=== PATIENT | female | born 1990 | race Caucasian/White ===

== ENCOUNTER 2017-12-11 07:15 | Emergency (ER) | payer OTHER, SELFPAY ==
[2017-12-11 07:16] VITALS: BP 115/92; PULSE 136; RESP 14; TEMP 36.3; O2SAT 95; BMI 31.5
[2017-12-11 07:29] VITALS: BP 122/79; PULSE 133; RESP 16; O2SAT 98
--- NOTE | 2017-12-11 07:49 | ED.VISSUMM ---
- ER Visit Summary Date of Service: 12/11/17 Chief Complaint: [Back pain] History of Present Illness: The patient is a 27 F [who presents the emergency department with back pain. 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 Since then she has pain with movement and radiation down her right leg. No numbness or tingling. No urinary symptoms. No bowel dysfunction. No saddle anesthesia. No fevers or chills. She is not on any blood thinners. She has had no invasive procedures. No fevers or chills. She does have anxiety. She was very anxious coming and she was also out of breath walking up a hill with a 6-month-old which I think accounts for her elevated heart rate. She has had fibromyalgia and takes gabapentin she has been taking Tylenol. She is followed by Dr. Blackburn] Physical Examination: [] Heart rate 133 other vitals within normal limits WN WD NAD PERRL EOMI MMM NECK supple and nontender, no masses RRR no murmur rub or gallop, no peripheral edema, symmetric radial pulses CTAB no respiratory distress ABDOMEN is soft and nontender, normal bowel sounds, no distension, no rebound or guarding She has mild tenderness in the midline at L1-L2 as well as L4-L5 there is no step-offs external examination is normal she has decreased range of motion secondary to pain 5 EHL dorsiflexion plantar flexion knee extension hip flexion there is no skin changes distally she has 2+ DP pulses and 2+ patellar reflexes SKIN is warm and dry no rashes Alert and Oriented x3, CN II-XII in tact, no motor or sensory deficits, gait normal No lymphadenopathy Test Results: [] Emergency Department Course and Treatment: [Patient was given Toradol IM. X-rays were obtained. Extremities show straightening of normal lordosis there is no other acute abnormality. Patient may have a small herniated disc. She will be treated with Medrol Dosepak [place] and keep her Flexeril as scheduled. Patient was given precautions for which to return. There is no signs of cauda equina or spinal cord compression. She will follow-up with her primary care physician and 5 days.] Treatment Plan: [] Disposition: [Discharge] Impression: [Lumbar back pain with radiculopathy] This note was generated with [employer] dictation software. It may contain incorrect words, spelling, and punctuation that were not noted in review of the chart prior to signing ED Disposition - Plan for ED Patient: Chief Complaint: Back Referrals: Selvin Nice DO [Primary Care Provider] -
--- NOTE | 2017-12-11 07:57 | RAD_ITS ---
STUDY: X-RAY - LUMBAR SPINE REASON FOR EXAM: Female, 27 years old. Low back pain. TECHNIQUE: 3 view(s) of the lumbar spine were obtained. COMPARISON: None FINDINGS: There is straightening of the normal lumbar lordosis. There is no substantial scoliosis. There is a normal alignment of the vertebrae. Normal vertebral bodies and endplates. Normal disc space heights. Partial lumbarization of the S1 vertebrae. The soft tissue structures are unremarkable. RAD/Lumbar Spine 2 or 3 Views IMPRESSION: Straightening of the normal lumbar lordosis. Electronically Signed: Conner Chi MD at 8:14 EDT Tel [phone], Service support ,
[2017-12-11] MEDS: Ketorolac 60 MG/2 ML Vial IM (07:58)
--- NOTE | 2017-12-11 08:29 | ED.DEP ---
ED Disposition - Plan for ED Patient: Chief Complaint: Back Instructions: ED Sciatica, ED Low Back Pain Injury Prescriptions: Hydrocodone Bitart/Apap 5-325 [[place] 5MG-325MG] 1 tablet PO Q6H PRN PRN 2 Days #7 tablet PRN Reason: Pain MethylPREDNISolone DosePak [Medrol DosePak] 4 mg PO UD #1 box Referrals: Selvin Nice DO [Primary Care Provider] - 5-7 Days
[2017-12-11 08:47] VITALS: BP 121/75; PULSE 108; RESP 16; O2SAT 98
== END 2017-12-11 08:48 | disposition home or self-care (01) ==
PROVIDERS: Emergency Provider Emergency Medicine; Family Provider Preventive Medicine Occupational Medicine; PCP Preventive Medicine Occupational Medicine
DX: M54.5 Low back pain (principal); M54.16 Radiculopathy, lumbar region; M79.7 Fibromyalgia; F41.9 Anxiety disorder, unspecified; Z72.0 Tobacco use; Z79.899 Other long term (current) drug therapy
CPT/HCPCS: 72100; 96372; 99282